=== PATIENT | male | born 1990 | race Hispanic/Latino ===

== ENCOUNTER 2022-01-22 22:54 | Emergency (ER) | payer SELFPAY ==
[2022-01-22] MEDS ORDERED: LIDOCAINE VISCOUS 2% SOLN 15 ML UDC ONE (23:24)
[2022-01-22] MEDS ORDERED: MAGNES/ALUMIN/SIMET 30ML UCUP ONE (23:24)
--- NOTE | 2022-01-23 00:42 | EDPHYS ---
Physician Documentation [facility] Name: Shaq Goff Age: 31 yrs Sex: Male : 1990 Arrival Date: 01/22/2022 Time: 22:55 Bed 17 Private MD: ED Physician Jorge A Sotelo HPI: 01/23 00:10 This 31 yrs old Male presents to ER via Ambulatory with complaints of Feels ms3 like something is stuck in throat. 00:10 The patient presents with a foreign body sensation in the throat. The patient describes ms3 throat pain as constant. Onset: The symptoms/episode began/occurred today. Severity of symptoms: At their worst the symptoms were moderate, in the emergency department the symptoms are unchanged. Modifying factors: The symptoms are alleviated by nothing, the symptoms are aggravated by nothing, Patient's oral intake status: unable to tolerate foods. Associated signs and symptoms: The patient has no apparent associated signs or symptoms. 31-year-old male presents for foreign body sensation in his throat. Patient states today he was eating candy and drinking a soda and began not feeling well. Patient states he does have a history of GERD. Patient states he is unable to eat food at this time as he feels her something in his throat. Patient states he is able to tolerate p.o. Patient states he is having moderate discomfort. Historical: - PMHx: 01/22 23:23 High Cholesterol; Hypertension; kd3 - Immunization history:: Adult Immunizations up to date. - Social history:: Smoking status: unknown. ROS: 01/23 00:10 Constitutional: Negative for fever, and chills. ms3 Cardiovascular: Negative for chest pain, and palpitations. Respiratory: Negative for shortness of breath, cough, wheezing, and pleuritic chest pain, Abdomen/GI: Negative for abdominal pain, nausea, vomiting, diarrhea, and constipation, Skin: Negative for injury, rash, and discoloration. ENT: Positive for sore throat. All other systems are negative. Exam: 00:10 Constitutional: This is a well developed, well nourished patient who is awake, alert, ms3 and in no acute distress. Head/Face: Normocephalic, atraumatic. ENT: Nares patent. No nasal discharge, no septal abnormalities noted. Tympanic membranes are normal and external auditory canals are clear. Oropharynx with no redness, swelling, or masses, exudates, or evidence of obstruction, uvula midline. Mucous membranes moist. Neck: Trachea midline, no cervical lymphadenopathy. Supple, full range of motion without nuchal rigidity, or vertebral point tenderness. No Meningismus. Chest/axilla: Normal chest wall appearance and motion. Nontender with no deformity. Cardiovascular: Regular rate and rhythm with a normal S1 and S2. No gallops, murmurs, or rubs. Normal PMI, no JVD. No pulse deficits. Respiratory: Lungs have equal breath sounds bilaterally, clear to auscultation and percussion. No rales, rhonchi or wheezes noted. No increased work of breathing, no retractions or nasal flaring. Abdomen/GI: Soft, non-tender, with normal bowel sounds. No distension or tympany. No guarding or rebound. No evidence of tenderness throughout. Skin: Warm, dry with normal turgor. Normal color with no rashes, no lesions, and no evidence of cellulitis. Psych: Awake, alert, with orientation to person, place and time. Behavior, mood, and affect are within normal limits. Vital Signs: 01/22 23:29 BP 158 / 96; Pulse 100; Resp 18; Temp 99.1(O); Pulse Ox 97% on R/A; Weight 89.81 kg (R);lp1 01/23 01:22 BP 152 / 96; Pulse 98; Resp 16; Pulse Ox 98% on R/A; kd3 MDM: 01/22 23:17 Patient medically screened. ms3 01/23 00:10 Differential diagnosis: Esophageal irritation vs Food bolus. ms3 00:42 Data reviewed: vital signs, nurses notes. Counseling: I had a detailed discussion with ms3 the patient and/or guardian regarding: the historical points, exam findings, and any diagnostic results supporting the discharge/admit diagnosis, the need for outpatient follow up, to return to the emergency department if symptoms worsen or persist or if there are any questions or concerns that arise at home. ED course: Discussed physical exam findings with patient. Improved and tolerating p.o. at this time. Patient to follow-up with Dr. Hicks in 2 to 3 days. Patient understands agrees with plan. All questions were answered. Return precautions discussed include worsening symptoms, or any other concerns. 01/23 00:09 Order name: PO challenge; Complete Time: 00:50 ms3 Administered Medications: 01/22 23:22 Drug: GI Cocktail without - (Maalox Suspension 30 ml, Lidocaine Liquid 2 % 15 kd3 ml) Route: PO; 01/23 01:23 Follow up: Response: No adverse reaction kd3 Disposition Summary: 01/23/22 00:41 Discharge Ordered Location: Home ms3 Condition: Stable ms3 Diagnosis - Pain in throat ms3 Followup: ms3 - With: Abel Hernandez MD - When: 1 - 2 days - Reason: Re-evaluation by your physician Discharge Instructions: - Discharge Summary Sheet ms3 - Sore Throat ms3 Forms: - Medication Reconciliation Form ms3 - Thank You Letter ms3 - Antibiotic Education ms3 - Prescription Opioid Use ms3 Signatures: Jorge A Sotelo, DO ms3 Viola Cifuentes, RN RN kd3
--- NOTE | 2022-01-23 00:42 | ER ---
Nurse's Notes [facility] Name: Shaq Goff Age: 31 yrs Sex: Male : 1990 Arrival Date: 01/22/2022 Time: 22:55 Bed 17 Private MD: Diagnosis: Pain in throat Presentation: 01/22 23:29 Chief complaint: Patient states: Reports eating hard candy about 2 hours ago and feels lp1 like it got stuck. Has been able to drink minimal water but states he has not been able to eat food. Coronavirus screen: At this time, the client does not indicate any symptoms associated with coronavirus-19. Ebola Screen: No symptoms or risks identified at this time. Initial Sepsis Screen: Does the patient meet any 2 criteria? No. Patient's initial sepsis screen is negative. Does the patient have a suspected source of infection? No. Patient's initial sepsis screen is negative. Risk Assessment: Do you want to hurt yourself or someone else? Patient reports no desire to harm self or others. Onset of symptoms was January 22, 2022. 23:29 Method Of Arrival: Ambulatory lp1 23:29 Acuity: ARVIN 3 lp1 Historical: - PMHx: 23:23 High Cholesterol; Hypertension; kd3 - Immunization history:: Adult Immunizations up to date. - Social history:: Smoking status: unknown. Screenin/10 01:22 Abuse screen: Denies threats or abuse. Denies injuries from another. Nutritional kd3 screening: No deficits noted. Tuberculosis screening: No symptoms or risk factors identified. Fall Risk None identified. Assessment: 01/22 23:23 General: Appears in no apparent distress. comfortable, Behavior is calm, cooperative, kd3 appropriate for age. Pain:. Neuro: Level of Consciousness is awake, alert, obeys commands, Oriented to person, place, time, situation. Respiratory: Airway is patent Trachea midline Respiratory effort is even, unlabored, Respiratory pattern is regular, symmetrical. GI:. 01/23 01:24 Reassessment: Patient and/or family updated on plan of care and expected duration. Pain kd3 level reassessed. Patient is alert, oriented x 3, equal unlabored respirations, skin warm/dry/pink. PT Po challenge complete. no N/V. no stomach pain Patient states feeling better. Vital Signs: 01/22 23:29 BP 158 / 96; Pulse 100; Resp 18; Temp 99.1(O); Pulse Ox 97% on R/A; Weight 89.81 kg (R);lp1 01/23 01:22 BP 152 / 96; Pulse 98; Resp 16; Pulse Ox 98% on R/A; kd3 ED Course: 01/22 22:55 Patient arrived in ED. kz 23:05 Jorge A Sotelo DO is Attending Physician. ms3 23: Viola Cifuentes, RN is Primary Nurse. kd3 23:30 Triage completed. lp1 23:30 Arm band placed on. lp1 01/23 00:41 Abel Hernandez MD is Referral Physician. ms3 01:23 Patient has correct armband on for positive identification. Placed in gown. Call light kd3 in reach. 01:23 No provider procedures requiring assistance completed. Patient did not have IV access kd3 during this emergency room visit. Administered Medications: 01/22 23:22 Drug: GI Cocktail without - (Maalox Suspension 30 ml, Lidocaine Liquid 2 % 15 kd3 ml) Route: PO; 01/23 01:23 Follow up: Response: No adverse reaction kd3 Outcome: 00:41 Discharge ordered by . ms3 01:23 Discharged to home ambulatory. kd3 01:23 Condition: stable 01:23 Discharge instructions given to patient, Instructed on discharge instructions, follow up and referral plans. Demonstrated understanding of instructions, follow-up care. 01:24 Patient left the ED. kd3 Signatures: Nga Benavidez RN RN lp1 Jorge A Sotelo DO DO ms3 Viola Cifuentes, BETTINA RN kd3 Sonia Allen
[2022-01-23 05:24] VITALS: TEMP 99.1
[2022-01-23 05:26] VITALS: BP 152/96; O2SAT 98
== END 2022-01-23 01:24 | disposition home or self-care (01) ==
LOC: ER 22:54
DX: R07.0 Pain in throat (principal); E78.00 Pure hypercholesterolemia, unspecified; I10 Essential (primary) hypertension
CPT/HCPCS: 99283